=== PATIENT | female | born 1975 | race Caucasian/White ===

== ENCOUNTER 2018-04-09 10:01 | Outpatient (CLI) | payer OTHER ==
[~2018-04-09 10:01] MED LIST: DILTIAZEM 24HR360 MG; LOSARTAN POTAS100 MG; PROCARDIA
== END 2018-04-09 10:16 | disposition home or self-care (01) ==
LOC: RAD 10:01
DX: C64.2 Malignant neoplasm of left kidney, except renal pelvis (principal); R31.29 Other microscopic hematuria

== ENCOUNTER 2019-01-19 08:07 | Outpatient (CLI) | payer OTHER | END 2019-01-19 15:50 | disposition home or self-care (01) | LOC: TOM 08:07 | DX: N20.0 Calculus of kidney (principal); C64.2 Malignant neoplasm of left kidney, except renal pelvis ==

== ENCOUNTER 2020-04-14 07:43 | Outpatient (CLI) | payer OTHER | END 2020-04-14 08:03 | disposition home or self-care (01) | LOC: TOM 07:43 | PROVIDERS: ATTEND Urology | DX: K76.0 Fatty (change of) liver, not elsewhere classified (principal); C64.2 Malignant neoplasm of left kidney, except renal pelvis; R31.1 Benign essential microscopic hematuria; N20.0 Calculus of kidney ==

== ENCOUNTER 2021-07-04 09:20 | Outpatient (CLI) | payer OTHER | END 2021-07-04 13:35 | disposition home or self-care (01) | LOC: TOM 09:20 | PROVIDERS: ATTEND Urology | DX: C64.2 Malignant neoplasm of left kidney, except renal pelvis (principal) ==

== ENCOUNTER 2022-09-03 08:27 | Outpatient (CLI) | payer OTHER | END 2022-09-03 08:38 | disposition home or self-care (01) | LOC: MRI 08:27 | PROVIDERS: ATTEND Urology | DX: C64.2 Malignant neoplasm of left kidney, except renal pelvis (principal) | CPT/HCPCS: 74183 ==